=== PATIENT | male | born 1990 | race American Indian/Alaskan Native ===

== ENCOUNTER 2018-03-11 23:38 | Emergency (ER) | payer SELFPAY ==
[2018-03-12 01:00] LABS: Hematocrit 46.1 % (35.5-45.6); Hemoglobin 15.9 gm/dl (11.8-15.2); Mean Corpuscular HGB Conc 34 % (32-34); Mean Corpuscular Hemoglobin 29 pg (28-32); Mean Corpuscular Volume 85 fl (84-94); Platelet Count 229 K/mm3 (140-440); Red Blood Count 5.45 M/mm3 (3.65-5.03); Red Cell Distribution Width 14.8 % (13.2-15.2)
[2018-03-12 01:10] LABS: BUN/Creatinine Ratio 12; Blood Urea Nitrogen 11 mg/dL (9-20); Calcium 9.3 mg/dL (8.4-10.2); Hemolysis Index 123
--- NOTE | 2018-03-12 01:12 | XRay Report ---
FINAL REPORT PROCEDURE: XR CHEST ROUTINE 2V TECHNIQUE: PA and lateral chest radiographs were obtained. CPT 11744 HISTORY: PERSISTANT COUGH COMPARISON: No prior studies are available for comparison. FINDINGS: Heart: Normal. Mediastinum/Vessels: Normal. Lungs/Pleural space: Slight infrahilar infiltrates are noted. No effusion or pneumothorax. Bony thorax: No acute osseous abnormality. Other: IMPRESSION: Slight infrahilar infiltrates.
--- NOTE | 2018-03-12 07:43 | Emergency Department Report ---
HPI - General Chief Complaint: Upper Respiratory Infection Time Seen by Provider: 03/12/18 07:41 ED Past Medical Hx - Past Medical History Previous Medical History?: No - Surgical History Past Surgical History?: Yes Additional Surgical History: LEFT WRIST - Family History Family history: no significant - Social History Smoking Status: Current Every Day Smoker Substance Use Type: Alcohol - Medications Home Medications: Home Medications Medication Instructions Recorded Confirmed Last Taken Type ALBUTEROL Inhaler [ProAir HFA 2 puff IH QID PRN #1 inhalation 03/12/18 Unknown Rx Inhaler] Amoxicillin/K Clav Tab [Augmentin 1 tab PO Q12HR 10 Days #20 tab 03/12/18 Unknown Rx 875 mg] Chlorpheniramine/Dextromethorp 1 each PO BID PRN #14 tablet 03/12/18 Unknown Rx [Coricidin Hbp Cough & Cold Tab] Ibuprofen [Motrin] 600 mg PO Q8H PRN #15 tablet 03/12/18 Unknown Rx ED Review of Systems ROS: Stated complaint: HIGH BLOOD PRESSURE,DIZZY,COUGH, Other details as noted in HPI Comment: All other systems reviewed and negative Constitutional: fever. denies: chills Eyes: denies: eye pain, eye discharge ENT: denies: ear pain, throat pain, congestion Respiratory: cough, SOB with exertion. denies: orthopnea, shortness of breath, SOB at rest, stridor, wheezing Cardiovascular: denies: chest pain, palpitations, dyspnea on exertion, edema, syncope, paroxysmal nocturnal dyspnea Gastrointestinal: denies: abdominal pain, nausea, vomiting, diarrhea, constipation, hematemesis, melena, hematochezia Genitourinary: denies: dysuria, hematuria Musculoskeletal: denies: back pain, joint swelling, arthralgia, myalgia Skin: denies: rash Neurological: denies: headache, abnormal gait, vertigo Physical Exam - Physical Exam Vital Signs: Vital Signs 03/12/18 00:04 Temperature 100.1 F H Pulse Rate 78 Respiratory 20 Rate Blood Pressure 105/55 O2 Sat by Pulse 96 Oximetry ED Course Vital Signs 03/12/18 00:04 Temperature 100.1 F H Pulse Rate 78 Respiratory 20 Rate Blood Pressure 105/55 O2 Sat by Pulse 96 Oximetry ED Medical Decision Making - Lab Data Result diagrams: 03/12/18 00:30 03/12/18 00:30 Lab Results 03/12/18 03/12/18 03/12/18 Range/Units 00:30 00:30 00:30 WBC 7.6 (4.5-11.0) K/mm3 RBC 5.45 H (3.65-5.03) M/mm3 Hgb 15.9 H (11.8-15.2) gm/dl Hct 46.1 H (35.5-45.6) % MCV 85 (84-94) fl MCH 29 (28-32) pg MCHC 34 (32-34) % RDW 14.8 (13.2-15.2) % Plt Count 229 (140-440) K/mm3 Sodium 136 L (137-145) mmol/L Potassium 4.1 (3.6-5.0) mmol/L Chloride 96.4 L (98-107) mmol/L Carbon Dioxide 24 (22-30) mmol/L Anion Gap 20 mmol/L BUN 11 (9-20) mg/dL Creatinine 0.9 (0.8-1.5) mg/dL Estimated GFR > 60 ml/min BUN/Creatinine Ratio 12 % Glucose 92 (75-100) mg/dL Lactic Acid (0.7-2.0) mmol/L Calcium 9.3 (8.4-10.2) mg/dL Troponin T < 0.010 (0.00-0.029) ng/mL 03/12/18 Range/Units 08:00 WBC (4.5-11.0) K/mm3 RBC (3.65-5.03) M/mm3 Hgb (11.8-15.2) gm/dl Hct (35.5-45.6) % MCV (84-94) fl MCH (28-32) pg MCHC (32-34) % RDW (13.2-15.2) % Plt Count (140-440) K/mm3 Sodium (137-145) mmol/L Potassium (3.6-5.0) mmol/L Chloride (98-107) mmol/L Carbon Dioxide (22-30) mmol/L Anion Gap mmol/L BUN (9-20) mg/dL Creatinine (0.8-1.5) mg/dL Estimated GFR ml/min BUN/Creatinine Ratio % Glucose (75-100) mg/dL Lactic Acid 0.60 L (0.7-2.0) mmol/L Calcium (8.4-10.2) mg/dL Troponin T (0.00-0.029) ng/mL - EKG Data -: EKG Interpreted by Me - Radiology Data Radiology results: report reviewed Critical care attestation.: If time is entered above; I have spent that time in minutes in the direct care of this critically ill patient, excluding procedure time. ED Disposition Clinical Impression: Coughing, Fever in adult, Atypical chest pain Community acquired pneumonia Qualifiers: Laterality: unspecified laterality Qualified Code(s): J18.9 - Pneumonia, unspecified organism Disposition: DC- TO HOME OR SELFCARE Is pt being admited?: No Does the pt Need Aspirin: No Condition: Stable Instructions: Chest Pain (ED), Community-acquired Pneumonia (ED), Fever in Adults (ED), Acute Cough (ED) Additional Instructions: Please follow-up via primary care physician in 2 days and if he do not have a primary care physician follow-up at [facility] for pneumonia follow-up Take albuterol inhaler as instructed take antibiotic as instructed Motrin for fever and/or pain Please increase her fluid intake Prescriptions: ALBUTEROL Inhaler [ProAir HFA Inhaler] 2 puff IH QID PRN #1 inhalation PRN Reason: wheezing and cough Amoxicillin/K Clav Tab [Augmentin 875 mg] 1 tab PO Q12HR 10 Days #20 tab Chlorpheniramine/Dextromethorp [Coricidin Hbp Cough & Cold Tab] 1 each PO BID PRN #14 tablet PRN Reason: Cough Ibuprofen [Motrin] 600 mg PO Q8H PRN #15 tablet PRN Reason: fever and pain Referrals: PRIMARY CARE, [Primary Care Provider] - 03/14/18 [facility] [Outside] - 3-5 Days Forms: Accompanied Note, Work/School Release Form(ED)
[2018-03-12] MEDS ORDERED: MOTRIN PO ONE (07:58)
[2018-03-12] MEDS ORDERED: NACL 0.9% 1000 ML 1,000 ML IV ONE (07:58)
[2018-03-12] MEDS ORDERED: TYLENOL/CODEINE PO ONE (07:58)
[2018-03-12] MEDS ORDERED: XOPENEX IH ONE (07:58)
[2018-03-12] MEDS ORDERED: ATROVENT IH ONE (07:58)
[2018-03-12] MEDS ORDERED: ZOSYN/NS 4.5GM/100ML 4.5 GM/100 ML VIAL IV SCH (08:00)
[2018-03-12 09:53] VITALS: BP 130/70
== END 2018-03-12 09:51 | disposition home or self-care (01) ==
LOC: ED 23:38
DX: J18.9 Pneumonia, unspecified organism (principal); F17.200 Nicotine dependence, unspecified, uncomplicated
CPT/HCPCS: 36415; 71046; 80048; 82140; 84484; 85027; 87040; 93005; 93010; 94640; 96360; 99284; J7030